=== PATIENT | female | born 1950 | race Caucasian/White ===

== ENCOUNTER 2016-04-28 14:33 | Outpatient (CLI) | payer MEDICARE | END 2016-04-28 14:34 | disposition home or self-care (01) | DX: Z12.31 Encounter for screening mammogram for malignant neoplasm of breast (principal) ==

== ENCOUNTER 2016-04-28 14:38 | Outpatient (CLI) | payer MEDICARE | END 2016-04-28 14:39 | disposition home or self-care (01) | DX: M85.852 Other specified disorders of bone density and structure, left thigh (principal); Z78.0 Asymptomatic menopausal state ==

== ENCOUNTER 2016-11-18 15:37 | Outpatient (CLI) | payer MEDICARE ==
[2016-11-18 18:45] LABS: BASOPHILS % (AUTO) 0.4 %; EOSINOPHILS # (AUTO) 0.1 10^3/uL (0.0-0.7); HCT - HEMATOCRIT 39.2 % (37.0-47.0); HGB - HEMOGLOBIN 13.2 g/dL (12.0-16.0); LYMPHOCYTES # (AUTO) 2.3 10^3/uL (1.5-3.5); LYMPHOCYTES % (AUTO) 32.2 %; MEAN CORPUSCULAR HEMOGLOBIN 30.5 pg (27.0-31.0); MEAN CORPUSCULAR HGB CONC 33.7 g/dL (32.0-36.0); MEAN CORPUSCULAR VOLUME 90.3 fL (81.0-99.0); MEAN PLATELET VOLUME 7.3 fL (7.9-10.8); MONOCYTES # (AUTO) 0.7 10^3/uL (0.0-1.0); MONOCYTES % (AUTO) 9.1 %; NEUTROPHILS # (AUTO) 4.2 10^3/uL (1.5-6.6); NEUTROPHILS % (AUTO) 57.3 %; NUCLEATED RED BLOOD CELLS AUTO 0.1 /100WBC; RED BLOOD COUNT 4.34 10^6/uL (4.20-5.40); RED CELL DISTRIBUTION WIDTH 12.2 % (12.0-15.0); UNCORRECTED WHITE BLOOD COUNT 7.3 x10^3/uL; WHITE BLOOD COUNT 7.3 x10^3/uL (4.8-10.8)
[2016-11-18 18:49] LABS: BILIRUBIN,URINE NEGATIVE (NEGATIVE)
[2016-11-18 19:02] LABS: PHOSPHORUS 2.7 mg/dL (2.5-4.6)
[2016-11-18 19:19] LABS: TOTAL T3 0.83 ng/mL (0.87-1.78)
[2016-11-18 19:25] LABS: ALBUMIN/GLOBULIN RATIO 1.6 (1.0-2.2); BILIRUBIN,TOTAL 0.5 mg/dL (0.2-1.0); CALCIUM 8.9 mg/dL (8.5-10.3); CREATININE 1.7 mg/dL (0.4-1.0); POTASSIUM 3.8 mmol/L (3.5-5.0); TOTAL PROTEIN 6.6 g/dL (6.7-8.2)
[2016-11-18 19:32] LABS: THYROID STIMULATING HORMONE 2.02 uIU/mL (0.34-5.60)
== END 2016-11-18 15:38 | disposition home or self-care (01) ==
LOC: LAB.F 15:37
PROVIDERS: ATTEND Physician Assistant
DX: N18.3 Chronic kidney disease, stage 3 (moderate) (principal)
CPT/HCPCS: 36415; 80053; 80069; 81003; 82043; 82306; 82570; 83970; 84100; 84436; 84443; 84480; 84550; 85025

== ENCOUNTER 2017-03-25 10:52 | Outpatient (CLI) | payer MEDICARE ==
[2017-03-25 17:36] LABS: BASOPHILS % (AUTO) 1.1 %; EOSINOPHILS # (AUTO) 0.1 10^3/uL (0.0-0.7); EOSINOPHILS % (AUTO) 1.3 %; HGB - HEMOGLOBIN 13.5 g/dL (12.0-16.0); LYMPHOCYTES # (AUTO) 1.7 10^3/uL (1.5-3.5); LYMPHOCYTES % (AUTO) 41.4 %; MEAN CORPUSCULAR HEMOGLOBIN 30.3 pg (27.0-31.0); MEAN CORPUSCULAR HGB CONC 32.9 g/dL (32.0-36.0); MEAN PLATELET VOLUME 7.7 fL (7.9-10.8); MONOCYTES # (AUTO) 0.5 10^3/uL (0.0-1.0); MONOCYTES % (AUTO) 11.1 %; NEUTROPHILS # (AUTO) 1.9 10^3/uL (1.5-6.6); NEUTROPHILS % (AUTO) 45.1 %; RED BLOOD COUNT 4.45 10^6/uL (4.20-5.40); RED CELL DISTRIBUTION WIDTH 12.7 % (12.0-15.0); UNCORRECTED WHITE BLOOD COUNT 4.2 x10^3/uL; WHITE BLOOD COUNT 4.2 x10^3/uL (4.8-10.8)
[2017-03-25 18:00] LABS: HEMOGLOBIN A1C 0.57 g/dL
[2017-03-25 18:05] LABS: BILIRUBIN,URINE NEGATIVE (NEGATIVE)
[2017-03-25 18:09] LABS: ALBUMIN/GLOBULIN RATIO 1.6 (1.0-2.2); BILIRUBIN,TOTAL 0.5 mg/dL (0.2-1.0); BUN - BLOOD UREA NITROGEN 40 mg/dL (6-20); CALCIUM 9.2 mg/dL (8.5-10.3); CARBON DIOXIDE - CO2 26 mmol/L (21-32); CHLORIDE 105 mmol/L (101-111); CHOL/HDL RATIO 5.6 (<4.4); CHOLESTEROL 305 mg/dL; CREATININE 1.8 mg/dL (0.4-1.0); GFR - MDRD 28 (>89); GLUCOSE 112 mg/dL (70-100); HDL CHOLESTEROL 54 mg/dL; LDL/HDL RATIO 4.1 (<4.4); PHOSPHORUS 4.1 mg/dL (2.5-4.6); POTASSIUM 3.7 mmol/L (3.5-5.0); SODIUM 138 mmol/L (135-145); TRIGLYCERIDES 161 mg/dL; URIC ACID 5.9 mg/dL (2.6-7.2); VLDL CHOLESTEROL 32 mg/dL
[2017-03-25 18:18] LABS: THYROID STIMULATING HORMONE 1.15 uIU/mL (0.34-5.60)
[2017-03-25 18:23] LABS: TOTAL T3 0.77 ng/mL (0.87-1.78)
== END 2017-03-25 10:53 | disposition home or self-care (01) ==
LOC: LAB.F 10:52
PROVIDERS: ATTEND Physician Assistant
DX: R78.89 Finding of other specified substances, not normally found in blood (principal); R73.01 Impaired fasting glucose; R31.9 Hematuria, unspecified; E78.5 Hyperlipidemia, unspecified; R82.90 Unspecified abnormal findings in urine; N89.8 Other specified noninflammatory disorders of vagina; E03.9 Hypothyroidism, unspecified
CPT/HCPCS: 36415; 80053; 80061; 81003; 82043; 82306; 82550; 82570; 83036; 83970; 84100; 84436; 84443; 84480; 84481; 84550; 85025; 85379; 86038